=== PATIENT | male | born 1975 | race Caucasian/White ===

== ENCOUNTER 2024-02-02 21:38 | Emergency (ER) | payer OTHER, SELFPAY ==
--- NOTE | ~2024-02-02 | CT_ITS ---
EXAMINATION: CT abdomen pelvis wo con DATE: 02/02/2024 23:51 INDICATION: Kidney stone. TECHNIQUE: Computed tomography (CT) of the abdomen and pelvis was performed without intravenous contr ast. Automated exposure control and iterative reconstruction technique were employed. The dose-length product was 621.95 mGy-cm. COMPARISON: None. FINDINGS: The visualized portions of the lung bases demonstrate mild atelectasis. No pleural effusion . The heart size is normal. No pericardial effusion. The liver, gallbladder, spleen, pancreas, and ad renal glands are normal. There are 3 stones in right kidney measuring up to 3 mm. There is mild right hydronephrosis and hydroureter. There is a 5 mm stone in distal right ureter. There is a 4 mm stone in left kidney. There is a 12 mm cyst in left kidney. The prostate is moderately enlarged. There is a left inguinal hernia containing fat. There is diverticulosis of the colon without evidence of divert iculitis. The appendix is normal. There are no pathologically enlarged lymph nodes. There is no free intraperitoneal fluid. There is mild lumbar spondylosis. IMPRESSION: 1. 5 mm stone in distal right ureter with mild right hydronephrosis and hydroureter. 2. Bilateral nonobstructing kidney stones. Reviewed, dictated and finalized at location A. IMPRESSION: 1. 5 mm stone in distal right ureter with mild right hydronephrosis and hydrour eter. 2. Bilateral nonobstructing kidney stones.
[2024-02-02 21:41] VITALS: BP 186/103; PULSE 73; RESP 20; TEMP 37.1; O2SAT 100
--- NOTE | 2024-02-02 23:13 | ED.GENADULT ---
HPI - General Adult General Chief complaint: Urogenital-Male Stated complaint: flank pain Time Seen by Provider: 02/02/24 22:56 Related Data Allergies Allergy/AdvReac Type Severity Reaction Status Date / Time No Known Allergies Allergy Verified 02/02/24 21:44 Course Vital Signs Vital signs: Vital Signs Temperature 98.7 F 02/02/24 21:41 Pulse Rate 73 02/02/24 21:41 Respiratory Rate 20 02/02/24 21:41 Blood Pressure 186/103 H 02/02/24 21:41 Pulse Oximetry 100 02/02/24 21:41 Oxygen Delivery Room Air 02/02/24 21:41 Temperature 97.4 F L 02/03/24 01:22 Pulse Rate 74 02/03/24 01:22 Respiratory Rate 16 02/03/24 01:22 Blood Pressure 120/80 02/03/24 01:22 Pulse Oximetry 95 02/03/24 01:22 Oxygen Delivery Room Air 02/02/24 21:41 Medical Decision Making MDM Narrative Medical decision making narrative: The patient was evaluated by myself in the emergency department. History is obtained from patient who is an independent historian and physical exam was performed. External medical records were reviewed at this time. IV was established and pertinent tests were ordered. Patient was administered 15 mg IV Toradol for pain, 4 mg IV Zofran for nausea and 1 L IV fluid bolus with normal saline. Laboratory results obtained revealing no acute process. Urinalysis revealed 2+ blood and 51-100 rbc's. Imaging studies obtained included CT abdomen and pelvis without IV contrast which was independently interpreted by me revealing 5 mm stone in distal right ureter with mild right hydronephrosis and hydroureter, which is pending final radiology interpretation. Differential diagnosis considerations include UTI, pyelo, nephrolithiasis. Comorbidities impacting this visit include history of kidney stones. I have evaluated and discussed social determinants of health with the patient that could potentially impact subsequent diagnosis and treatment plans. On repeat assessment of the patient, reevaluation revealed that the patient is doing well and is in no acute distress. Patient symptoms have improved since he arrived to our emergency department. Patient continues to have some mild pain at this time 4 mg of IV morphine was administered. Repeat assessment patient states that his symptoms have completely resolved. Patient is tolerating p.o. intake and feels as though he can go home. Repeat vital signs were all reviewed and noted to be stable. Differential diagnosis and treatment plan were discussed with the patient at bedside. Patient agrees with discussion and after shared medical decision making agrees with discharge. All questions were answered to the patient's satisfaction. Patient will follow up with Urology with Dr. Salinas in 3-5 days. Scripts for Zofran, Flomax, [place] and ibuprofen were provided to the patient along with a urine strainer and he was instructed to take these medications as prescribed. Patient was provided with strict return precautions and instructed to return to the emergency department if any new or worsening symptoms develop. The patient was discharged in stable condition. Vital Signs Vital Signs: Vital Signs Temperature 98.7 F 02/02/24 21:41 Pulse Rate 73 02/02/24 21:41 Respiratory Rate 20 02/02/24 21:41 Blood Pressure 186/103 H 02/02/24 21:41 Pulse Oximetry 100 02/02/24 21:41 Oxygen Delivery Room Air 02/02/24 21:41 Temperature 97.4 F L 02/03/24 01:22 Pulse Rate 74 02/03/24 01:22 Respiratory Rate 16 02/03/24 01:22 Blood Pressure 120/80 02/03/24 01:22 Pulse Oximetry 95 02/03/24 01:22 Oxygen Delivery Room Air 02/02/24 21:41 Lab Data 02/02/24 23:15 02/02/24 23:15 Labs: Lab Results 02/02/24 Range/Units 23:15 WBC 6.6 (4.5-10.0) K/mm3 RBC 4.49 L (4.6-6.20) M/mm3 Hgb 13.8 L (14.0-18.0) g/dL Hct 39.1 L (42.0-52.0) % MCV 87.1 (80-100) fl MCH 30.7 (26-34) pg MCHC 35.3 (32
[2024-02-02] MEDS: SODIUM CHLORIDE 0.9% IV 1,000 ML 999 ML IV CONT (23:17)
[2024-02-02 23:22] LABS: Basophils Percent Auto 0.5 % (0.2-1.2); Eosinophils Absolute Auto 0.2 K/mm3 (0-0.3); Eosinophils Percent Auto 2.9 % (0-4.4); Hematocrit 39.1 % (42.0-52.0); Hemoglobin 13.8 g/dL (14.0-18.0); Immature Granulocyte Absolute 0.04 K/mm3 (0.00-0.031); Immature Granulocyte Percent A 0.6 % (0-0.5); Immature Platelet Fraction Pct 3.7 % (0.9-11.2); Lymphocytes Absolute Auto 1.11 K/mm3 (0.9-3.2); Lymphocytes Percent Auto 16.9 % (18.3-44.2); Mean Corpuscular HGB Conc 35.3 g/dl (32-36); Mean Corpuscular Hemoglobin 30.7 pg (26-34); Mean Corpuscular Volume 87.1 fl (80-100); Mean Platelet Volume 10.1 fl (7.4-10.4); Monocytes Absolute Auto 0.5 K/mm3 (0.1-0.6); Monocytes Percent Auto 7.5 % (2.6-8.5); Neutrophils Absolute Auto 4.7 K/mm3 (1.3-6.7); Neutrophils Percent Auto 71.6 % (45.5-73.1); Platelet Count Result 146 k/mm3 (150-375); Red Blood Count 4.49 M/mm3 (4.6-6.20); White Blood Count 6.6 K/mm3 (4.5-10.0)
[2024-02-02 23:25] LABS: Add Urine Microscopic? YES; Appearance Urine Clear (Clear); Bacteria Urine None Seen /hpf; Bilirubin Urine Negative (Negative); Blood Urine 2+ (Negative); Color Urine Yellow (Yellow); Glucose Urine UA 3+ mg/dL (Negative); Ketones Urine Negative (Negative); Leukocyte Esterase Ur Negative LEU/UL (Negative); Nitrate Urine Negative (Negative); Non Pathogenic Casts 0-2; Protein Urine Trace mg/dL (Negative); RBC Urine 51-100 /hpf (0-2); Specific Grav Ur 1.025 (1.001-1.035); Squamous Epithelial Cell Urine None Seen /hpf (Few); WBC Urine 0-5 /hpf (0-3)
[2024-02-02 23:29] LABS: Alanine Aminotransferase 43 U/L (6-50); Albumin Level 4.5 g/dL (3.5-5.1); Alkaline Phosphatase 69 U/L (38-126); Anion Gap 12 mmol/L (4-12); Aspartate Amino Transferase 39 U/L (17-59); Bilirubin,Total 0.9 mg/dL (0.2-1.3); Blood Urea Nitrogen 12 mg/dL (9-20); Calcium 9.4 mg/dL (8.4-10.2); Carbon Dioxide 24 mmol/L (22-30); Chloride 101 mmol/L (98-107); Estimated CRCL calculation 66 ml/min; Estimated Glomerular Filt Rate 54; Glucose 217 mg/dL (65-110); Potassium 3.7 mmol/L (3.4-5.0); Sodium 137 mmol/L (137-145)
[2024-02-03] MEDS: ONDANSETRON INJ 4 MG/2 ML VIAL IV PUSH
[2024-02-03] MEDS: KETOROLAC 15 MG/ML VIAL (*BKC) IV PUSH
[2024-02-03] MEDS: MORPHINE SULFATE (*CRX) 4 MG/ML INJ IV PUSH (00:47)
[2024-02-03 01:22] VITALS: BP 120/80; PULSE 74; RESP 16; TEMP 36.3; O2SAT 95
== END 2024-02-03 01:47 | disposition home or self-care (01) ==
PROVIDERS: Emergency Provider Emergency Medicine
DX: N13.2 Hydronephrosis with renal and ureteral calculous obstruction (principal)
CPT/HCPCS: 36415; 74176; 80053; 81001; 85025; 85055; 96361; 96374; 96375; 99284; J1885; J2270; J2405; J7030